=== PATIENT | male | born 1950 | race Caucasian/White ===

== ENCOUNTER 2023-07-27 09:10 | Inpatient (IN) | payer OTHER ==
[2023-07-27 11:13] LABS: BASO % 0.8 % (0-2.0); EOS % 0.6 % (0-4.5); HEMATOCRIT 20.2 % (35.4-49); LYMPH % 10.9 % (8-40); MCH 29.9 pg (25.7-33.7); MCHC 32.5 g/dl (32.0-35.9); MEAN CELL VOLUME 92.1 fl (80-96); MEAN PLT VOLUME 8.5 fl (7.5-11.1); MONO % 4.9 % (3.8-10.2); NEUT % 82.8 % (42.8-82.8); PLATELET COUNT 189 10^3/uL (134-434); RBC 2.19 M/mm3 (4.00-5.60); RDW 20.4 % (11.9-15.9)
[2023-07-27 11:13] LABS: INR 1.12 (0.83-1.09)
[2023-07-27 11:15] LABS: ACTIVATED PTT 26.4 SECONDS (25.2-36.5)
[2023-07-27 11:19] LABS: HEMOGLOBIN 6.6 GM/dL (11.7-16.9)
[2023-07-27 11:22] LABS: POTASSIUM 4.1 mmol/L (3.5-5.1)
[2023-07-27 11:23] LABS: ALBUMIN 3.2 g/dl (3.4-5.0); BLOOD UREA NITROGEN 55.1 mg/dL (7-18); CALCIUM 9.3 mg/dL (8.5-10.1)
[2023-07-27 11:25] LABS: CREATININE 1.6 mg/dL (0.55-1.3)
[2023-07-27 11:28] LABS: BILIRUBIN,TOTAL 0.3 mg/dL (0.2-1); TOT PROT 6.4 g/dl (6.4-8.2)
[2023-07-27] MEDS ORDERED: LACTATED RINGERS SOLUTION 1,000 ML/1,000 ML INFUS.BAG IV SCH (14:00)
[2023-07-27] MEDS ORDERED: PANTOPRAZOLE SODIUM 40 MG/100 ML BAG IVPB ONE (14:34)
[2023-07-27] MEDS: PANTOPRAZOLE SODIUM 40 MG VIAL IVPUSH SCH (15:06)
[2023-07-27] MEDS: INSULIN SLIDING SCALE (NOVOLOG) 1 VIAL SQ SCH ×2 (17:23→22:58)
[2023-07-27] MEDS ORDERED: CARVEDILOL 3.125 MG TABLET (FP) PO SCH (22:00)
[2023-07-27] MEDS ORDERED: SACUBITRIL/VALSARTAN 24 MG-26 MG TABLET PO SCH (22:00)
[2023-07-27] MEDS ORDERED: ATORVASTATIN CA 40 MG TABLET (FP) ONE (22:34)
[2023-07-27 22:49] LABS: HEMATOCRIT 21.8 % (35.4-49); HEMOGLOBIN 7.1 GM/dL (11.7-16.9); MCH 29.7 pg (25.7-33.7); MCHC 32.5 g/dl (32.0-35.9); MEAN CELL VOLUME 91.5 fl (80-96); MEAN PLT VOLUME 7.7 fl (7.5-11.1); PLATELET COUNT 146 10^3/uL (134-434); RBC 2.39 M/mm3 (4.00-5.60); RDW 17.9 % (11.9-15.9); WHITE BLOOD COUNT 7.2 K/mm3 (4.0-10.0)
[2023-07-27] MEDS: MEMANTINE HCL 5 MG TABLET (UD) PO SCH (22:54)
[2023-07-27] MEDS: ATORVASTATIN CA 40 MG TABLET (FP) PO SCH (22:54)
[2023-07-28 06:42] LABS: HEMATOCRIT 27.4 % (35.4-49); HEMOGLOBIN 9.1 GM/dL (11.7-16.9); MCH 30.6 pg (25.7-33.7); MCHC 33.4 g/dl (32.0-35.9); MEAN CELL VOLUME 91.4 fl (80-96); MEAN PLT VOLUME 8.1 fl (7.5-11.1); PLATELET COUNT 148 10^3/uL (134-434); RBC 2.99 M/mm3 (4.00-5.60); RDW 16.2 % (11.9-15.9); WHITE BLOOD COUNT 8.4 K/mm3 (4.0-10.0)
[2023-07-28] MEDS: DONEPEZIL HCL 10 MG TABLET (FP) PO SCH (09:07)
[2023-07-28] MEDS: metoPROLOL SUCCINATE 25 MG TAB.SR.24H (FP) PO SCH (09:08)
[2023-07-28] MEDS: OXYBUTYNIN CHLORIDE 5 MG TABLET PO SCH ×2 (09:08→21:55)
[2023-07-28] MEDS: PANTOPRAZOLE SODIUM 40 MG VIAL IVPUSH SCH (09:08)
[2023-07-28] MEDS: TAMSULOSIN HCL 0.4 MG CAP PO SCH (09:08)
[2023-07-28] MEDS: MEMANTINE HCL 5 MG TABLET (UD) PO SCH ×2 (09:08→21:33)
[2023-07-28] MEDS: FINASTERIDE 5 MG TABLET (FP) PO SCH (09:08)
[2023-07-28] MEDS: ALLOPURINOL 300 MG TABLET (FP) PO SCH (09:08)
[2023-07-28] MEDS: INSULIN SLIDING SCALE (NOVOLOG) 1 VIAL SQ SCH ×4 (09:31→21:33)
[2023-07-28] MEDS ORDERED: TORSEMIDE 20 MG TABLET (FP) PO SCH (10:00)
[2023-07-28] MEDS ORDERED: MEMANTINE HCL 7 MG PO SCH (10:00)
[2023-07-28 10:03] LABS: BASO % 0.4 % (0-2.0); EOS % 0.8 % (0-4.5); HEMATOCRIT 25.6 % (35.4-49); HEMOGLOBIN 8.5 GM/dL (11.7-16.9); LYMPH % 9.2 % (8-40); MCH 30.2 pg (25.7-33.7); MCHC 33.3 g/dl (32.0-35.9); MEAN CELL VOLUME 90.9 fl (80-96); MONO % 6.2 % (3.8-10.2); NEUT % 83.4 % (42.8-82.8); PLATELET COUNT 146 10^3/uL (134-434); RBC 2.82 M/mm3 (4.00-5.60); RDW 17.4 % (11.9-15.9); WHITE BLOOD COUNT 8.6 K/mm3 (4.0-10.0)
[2023-07-28 10:45] LABS: POTASSIUM 4.2 mmol/L (3.5-5.1)
[2023-07-28 10:49] LABS: CALCIUM 8.5 mg/dL (8.5-10.1)
[2023-07-28 10:52] LABS: BILIRUBIN,TOTAL 0.8 mg/dL (0.2-1); BLOOD UREA NITROGEN 38.7 mg/dL (7-18); CREATININE 1.1 mg/dL (0.55-1.3); PHOSPHOROUS 2.8 mg/dL (2.5-4.9); TOT PROT 5.8 g/dl (6.4-8.2)
[2023-07-28] MEDS ORDERED: INSULIN (NOVOLOG) ASPART 100 UNITS/ML 10ML VIAL ONE (21:23)
[2023-07-28] MEDS: ATORVASTATIN CA 40 MG TABLET (FP) PO SCH (21:33)
[2023-07-29] MEDS: INSULIN SLIDING SCALE (NOVOLOG) 1 VIAL SQ SCH ×4 (06:06→21:49)
[2023-07-29 08:42] LABS: BASO % 0.8 % (0-2.0); HEMATOCRIT 24.1 % (35.4-49); LYMPH % 16.9 % (8-40); MCH 30.6 pg (25.7-33.7); MCHC 33.4 g/dl (32.0-35.9); MEAN CELL VOLUME 91.6 fl (80-96); MEAN PLT VOLUME 8.2 fl (7.5-11.1); MONO % 7.8 % (3.8-10.2); NEUT % 70.5 % (42.8-82.8); PLATELET COUNT 135 10^3/uL (134-434); RBC 2.63 M/mm3 (4.00-5.60); RDW 17.7 % (11.9-15.9); WHITE BLOOD COUNT 7.2 K/mm3 (4.0-10.0)
[2023-07-29 08:58] LABS: CALCIUM 8.9 mg/dL (8.5-10.1)
[2023-07-29 08:59] LABS: ALBUMIN 3.1 g/dl (3.4-5.0)
[2023-07-29 09:02] LABS: BILIRUBIN,TOTAL 0.5 mg/dL (0.2-1); CREATININE 1.1 mg/dL (0.55-1.3)
[2023-07-29 09:03] LABS: TOT PROT 5.8 g/dl (6.4-8.2)
[2023-07-29] MEDS: metoPROLOL SUCCINATE 25 MG TAB.SR.24H (FP) PO SCH (09:34)
[2023-07-29] MEDS: FINASTERIDE 5 MG TABLET (FP) PO SCH (09:34)
[2023-07-29] MEDS: ALLOPURINOL 300 MG TABLET (FP) PO SCH (09:34)
[2023-07-29] MEDS: OXYBUTYNIN CHLORIDE 5 MG TABLET PO SCH ×2 (09:34→21:46)
[2023-07-29] MEDS: MEMANTINE HCL 5 MG TABLET (UD) PO SCH ×2 (09:34→21:46)
[2023-07-29] MEDS: DONEPEZIL HCL 10 MG TABLET (FP) PO SCH (09:34)
[2023-07-29] MEDS: PANTOPRAZOLE SODIUM 40 MG VIAL IVPUSH SCH (09:34)
[2023-07-29] MEDS: TAMSULOSIN HCL 0.4 MG CAP PO SCH (09:34)
[2023-07-29 15:58] VITALS: BMI 27.3
[2023-07-29] MEDS: ATORVASTATIN CA 40 MG TABLET (FP) PO SCH (21:46)
[2023-07-30] MEDS: INSULIN SLIDING SCALE (NOVOLOG) 1 VIAL SQ SCH ×4 (06:08→21:35)
[2023-07-30 07:45] LABS: BASO % 0.8 % (0-2.0); EOS % 4.2 % (0-4.5); HEMATOCRIT 24.6 % (35.4-49); HEMOGLOBIN 8.3 GM/dL (11.7-16.9); LYMPH % 16.6 % (8-40); MCH 31.1 pg (25.7-33.7); MCHC 33.6 g/dl (32.0-35.9); MEAN CELL VOLUME 92.6 fl (80-96); MONO % 6.9 % (3.8-10.2); NEUT % 71.5 % (42.8-82.8); PLATELET COUNT 130 10^3/uL (134-434); RBC 2.66 M/mm3 (4.00-5.60); RDW 18.2 % (11.9-15.9); WHITE BLOOD COUNT 7.8 K/mm3 (4.0-10.0)
[2023-07-30 09:03] LABS: POTASSIUM 4.5 mmol/L (3.5-5.1)
[2023-07-30 09:12] LABS: BILIRUBIN,TOTAL 0.3 mg/dL (0.2-1)
[2023-07-30 09:13] LABS: ALBUMIN 2.8 g/dl (3.4-5.0); BLOOD UREA NITROGEN 23.4 mg/dL (7-18); TOT PROT 5.6 g/dl (6.4-8.2)
[2023-07-30 09:15] LABS: CREATININE 1.1 mg/dL (0.55-1.3)
[2023-07-30] MEDS: metoPROLOL SUCCINATE 25 MG TAB.SR.24H (FP) PO SCH (10:14)
[2023-07-30] MEDS: FINASTERIDE 5 MG TABLET (FP) PO SCH (10:14)
[2023-07-30] MEDS: MEMANTINE HCL 5 MG TABLET (UD) PO SCH ×2 (10:14→21:32)
[2023-07-30] MEDS: ALLOPURINOL 300 MG TABLET (FP) PO SCH (10:14)
[2023-07-30] MEDS: DONEPEZIL HCL 10 MG TABLET (FP) PO SCH (10:14)
[2023-07-30] MEDS: OXYBUTYNIN CHLORIDE 5 MG TABLET PO SCH ×2 (10:14→21:32)
[2023-07-30] MEDS: TAMSULOSIN HCL 0.4 MG CAP PO SCH (10:14)
[2023-07-30] MEDS: PANTOPRAZOLE SODIUM 40 MG VIAL IVPUSH SCH (10:47)
[2023-07-30] MEDS: ATORVASTATIN CA 40 MG TABLET (FP) PO SCH (21:32)
[2023-07-31] MEDS: INSULIN SLIDING SCALE (NOVOLOG) 1 VIAL SQ SCH ×4 (06:32→21:10)
[2023-07-31 08:38] LABS: BASO % 0.8 % (0-2.0); EOS % 4.2 % (0-4.5); HEMATOCRIT 25.5 % (35.4-49); HEMOGLOBIN 8.2 GM/dL (11.7-16.9); LYMPH % 17.7 % (8-40); MCHC 32.3 g/dl (32.0-35.9); MEAN CELL VOLUME 92.8 fl (80-96); MEAN PLT VOLUME 7.6 fl (7.5-11.1); MONO % 9.2 % (3.8-10.2); NEUT % 68.1 % (42.8-82.8); PLATELET COUNT 134 10^3/uL (134-434); RBC 2.75 M/mm3 (4.00-5.60); RDW 18.5 % (11.9-15.9); WHITE BLOOD COUNT 6.6 K/mm3 (4.0-10.0)
[2023-07-31 09:02] LABS: POTASSIUM 4.9 mmol/L (3.5-5.1)
[2023-07-31] MEDS: OXYBUTYNIN CHLORIDE 5 MG TABLET PO SCH ×2 (09:15→21:06)
[2023-07-31] MEDS: DONEPEZIL HCL 10 MG TABLET (FP) PO SCH (09:15)
[2023-07-31] MEDS: metoPROLOL SUCCINATE 25 MG TAB.SR.24H (FP) PO SCH (09:15)
[2023-07-31] MEDS: MEMANTINE HCL 5 MG TABLET (UD) PO SCH ×2 (09:15→21:06)
[2023-07-31] MEDS: PANTOPRAZOLE SODIUM 40 MG VIAL IVPUSH SCH (09:15)
[2023-07-31] MEDS: TAMSULOSIN HCL 0.4 MG CAP PO SCH (09:15)
[2023-07-31] MEDS: FINASTERIDE 5 MG TABLET (FP) PO SCH (09:15)
[2023-07-31] MEDS: ALLOPURINOL 300 MG TABLET (FP) PO SCH (09:15)
[2023-07-31 09:24] LABS: ALBUMIN 2.9 g/dl (3.4-5.0); CALCIUM 8.4 mg/dL (8.5-10.1); MAGNESIUM 2.3 mg/dL (1.8-2.4)
[2023-07-31 09:25] LABS: BLOOD UREA NITROGEN 18.5 mg/dL (7-18)
[2023-07-31 09:27] LABS: CREATININE 0.9 mg/dL (0.55-1.3); PHOSPHOROUS 2.9 mg/dL (2.5-4.9)
[2023-07-31 09:28] LABS: BILIRUBIN,TOTAL 0.4 mg/dL (0.2-1); TOT PROT 5.6 g/dl (6.4-8.2)
[2023-07-31] MEDS ORDERED: PEG 3350/NA SULF BICARB CL/KCL 4000 ML SOLN.RECON PO ONE (10:00)
[2023-07-31] MEDS ORDERED: BISACODYL 5 MG TABLET.DR (FP) PO ONE (20:00)
[2023-07-31] MEDS: ATORVASTATIN CA 40 MG TABLET (FP) PO SCH (21:06)
[2023-08-01] MEDS: INSULIN SLIDING SCALE (NOVOLOG) 1 VIAL SQ SCH ×4 (06:06→22:20)
[2023-08-01 07:37] LABS: INR 0.9 (0.83-1.09); PROTHROMBIN TIME (PATIENT) 10.5 SEC (9.7-13.0)
[2023-08-01 07:41] LABS: POTASSIUM 3.8 mmol/L (3.5-5.1)
[2023-08-01 07:52] LABS: BLOOD UREA NITROGEN 8.8 mg/dL (7-18)
[2023-08-01 07:55] LABS: CREATININE 0.9 mg/dL (0.55-1.3)
[2023-08-01 08:02] LABS: BASO % 1.1 % (0-2.0); EOS % 2.8 % (0-4.5); HEMATOCRIT 27.8 % (35.4-49); HEMOGLOBIN 8.9 GM/dL (11.7-16.9); LYMPH % 14.6 % (8-40); MCH 29.4 pg (25.7-33.7); MCHC 31.9 g/dl (32.0-35.9); MEAN CELL VOLUME 92.2 fl (80-96); MEAN PLT VOLUME 8.1 fl (7.5-11.1); MONO % 6.4 % (3.8-10.2); NEUT % 75.1 % (42.8-82.8); PLATELET COUNT 160 10^3/uL (134-434); RBC 3.02 M/mm3 (4.00-5.60); RDW 18.1 % (11.9-15.9); WHITE BLOOD COUNT 7.4 K/mm3 (4.0-10.0)
[2023-08-01] MEDS: MEMANTINE HCL 5 MG TABLET (UD) PO SCH ×2 (09:25→22:15)
[2023-08-01] MEDS: ALLOPURINOL 300 MG TABLET (FP) PO SCH (09:25)
[2023-08-01] MEDS: DONEPEZIL HCL 10 MG TABLET (FP) PO SCH (09:25)
[2023-08-01] MEDS: PANTOPRAZOLE SODIUM 40 MG VIAL IVPUSH SCH (09:26)
[2023-08-01] MEDS: FINASTERIDE 5 MG TABLET (FP) PO SCH (09:26)
[2023-08-01] MEDS: metoPROLOL SUCCINATE 25 MG TAB.SR.24H (FP) PO SCH (09:27)
[2023-08-01] MEDS: OXYBUTYNIN CHLORIDE 5 MG TABLET PO SCH ×2 (09:37→22:15)
[2023-08-01 15:00] VITALS: RESP 20
[2023-08-01] MEDS ORDERED: IRON SUCROSE INJECTION 200 MG in SODIUM CHLORIDE 90 ML IVPB ONE (15:00)
[2023-08-01] MEDS: TAMSULOSIN HCL 0.4 MG CAP PO SCH (15:29)
[2023-08-01] MEDS ORDERED: PANTOPRAZOLE 40 MG TABLET PO SCH (22:00)
[2023-08-01] MEDS: ATORVASTATIN CA 40 MG TABLET (FP) PO SCH (22:15)
[2023-08-02] MEDS: INSULIN SLIDING SCALE (NOVOLOG) 1 VIAL SQ SCH (06:09)
[2023-08-02 06:26] VITALS: BP 150/75; PULSE 75; TEMP 98
== END 2023-08-02 09:24 | disposition home or self-care (01) | DRG 378 ==
LOC: JER 09:10 → JERBED 13:18 → J4W 07-28 15:24
PROVIDERS: ADMIT Internal Medicine; ATTEND Internal Medicine
PROC: 0DB78ZX Excision of Stomach, Pylorus, Via Natural or Artificial Opening Endoscopic, Diagnostic (ICD-10-PCS; 2023-08-01)
PROC: 0DBH8ZZ Excision of Cecum, Via Natural or Artificial Opening Endoscopic (ICD-10-PCS; 2023-08-01)
PROC: 0DBL8ZZ Excision of Transverse Colon, Via Natural or Artificial Opening Endoscopic (ICD-10-PCS; 2023-08-01)
PROC: 0W3P8ZZ Control Bleeding in Gastrointestinal Tract, Via Natural or Artificial Opening Endoscopic (ICD-10-PCS; 2023-08-01)
PROC: 30233N1 Transfusion of Nonautologous Red Blood Cells into Peripheral Vein, Percutaneous Approach (ICD-10-PCS; 2023-08-01)
PROC: 0DB98ZX Excision of Duodenum, Via Natural or Artificial Opening Endoscopic, Diagnostic (ICD-10-PCS; principal; 2023-08-01 11:45)
DX: K25.0 Acute gastric ulcer with hemorrhage (principal); D62 Acute posthemorrhagic anemia; N17.9 Acute kidney failure, unspecified; I50.32 Chronic diastolic (congestive) heart failure; I13.0 Hypertensive heart and chronic kidney disease with heart failure and stage 1 through stage 4 chronic kidney disease, or unspecified chronic kidney disease; K25.9 Gastric ulcer, unspecified as acute or chronic, without hemorrhage or perforation; K21.9 Gastro-esophageal reflux disease without esophagitis; E78.5 Hyperlipidemia, unspecified; G30.9 Alzheimer's disease, unspecified; F02.80 Dementia in other diseases classified elsewhere, unspecified severity, without behavioral disturbance, psychotic disturbance, mood disturbance, and anxiety; N40.0 Benign prostatic hyperplasia without lower urinary tract symptoms; K59.00 Constipation, unspecified; M10.9 Gout, unspecified; E11.22 Type 2 diabetes mellitus with diabetic chronic kidney disease; N18.9 Chronic kidney disease, unspecified; Z95.0 Presence of cardiac pacemaker; D12.0 Benign neoplasm of cecum
CPT/HCPCS: 36415; 36430; 80048; 80053; 82272; 82728; 82962; 83540; 83550; 83735; 84100; 84484; 85025; 85027; 85610; 85730; 86850; 86900; 86901; 86922; 93005; 93010; 93306-TC; 99285-25; J1756; P9038; P9058

== ENCOUNTER 2023-10-12 16:28 | Observation (INO) | payer OTHER ==
[2023-10-12 17:29] VITALS: BMI 25.7
[2023-10-12 19:36] LABS: BASO % 0.9 % (0-2.0); EOS % 1.8 % (0-4.5); HEMATOCRIT 40.8 % (35.4-49); HEMOGLOBIN 12.8 GM/dL (11.7-16.9); LYMPH % 17.8 % (8-40); MCH 26.2 pg (25.7-33.7); MCHC 31.2 g/dl (32.0-35.9); MEAN CELL VOLUME 83.8 fl (80-96); MEAN PLT VOLUME 7.4 fl (7.5-11.1); MONO % 7.1 % (3.8-10.2); NEUT % 72.4 % (42.8-82.8); PLATELET COUNT 180 10^3/uL (134-434); RBC 4.88 M/mm3 (4.00-5.60); RDW 17.1 % (11.9-15.9); WHITE BLOOD COUNT 7.1 K/mm3 (4.0-10.0)
[2023-10-12 19:52] LABS: POTASSIUM 4.5 mmol/L (3.5-5.1)
[2023-10-12 19:54] LABS: ALBUMIN 3.5 g/dl (3.4-5.0); CALCIUM 9.1 mg/dL (8.5-10.1)
[2023-10-12 19:55] LABS: BLOOD UREA NITROGEN 32.2 mg/dL (7-18)
[2023-10-12 19:59] LABS: BILIRUBIN,TOTAL 0.4 mg/dL (0.2-1); CREATININE 1.5 mg/dL (0.55-1.3); PHOSPHOROUS 3.2 mg/dL (2.5-4.9); TOT PROT 7.2 g/dl (6.4-8.2)
[2023-10-12] MEDS: SODIUM CHLORIDE 0.9% 500 ML INFUS.BAG IV ONE (20:07)
[2023-10-12] MEDS: DEXTROSE 5%-0.45% SALINE 1,000 ML IV SCH (22:01)
[2023-10-12 23:01] LABS: PH,URINE 7.5 (5.0-8.0); URINE APPEARANCE CLEAR; URINE BILIRUBIN NEGATIVE (NEGATIVE); URINE COLOR YELLOW; URINE GLUCOSE (UA) 2+ (NEGATIVE); URINE KETONE NEGATIVE (NEGATIVE); URINE LEUK ESTERASE NEGATIVE (NEGATIVE); URINE NITRITE NEGATIVE (NEGATIVE); URINE PROTEIN NEGATIVE (NEGATIVE); URINE UROBILINOGEN 0.2 mg/dL (0.2-1.0)
[2023-10-13] MEDS: INSULIN ASPART SLIDING SCALE (NOVOLOG) 1 VIAL SQ SCH (07:00)
[2023-10-13] MEDS: LACTATED RINGERS SOLUTION 1,000 ML/1,000 ML INFUS.BAG IV SCH (07:39)
[2023-10-13 08:07] LABS: BASO % 0.7 % (0-2.0); EOS % 2.3 % (0-4.5); HEMATOCRIT 36.5 % (35.4-49); HEMOGLOBIN 11.9 GM/dL (11.7-16.9); LYMPH % 17.1 % (8-40); MCH 27.1 pg (25.7-33.7); MCHC 32.6 g/dl (32.0-35.9); MEAN CELL VOLUME 83.3 fl (80-96); MEAN PLT VOLUME 7.7 fl (7.5-11.1); MONO % 6.9 % (3.8-10.2); PLATELET COUNT 164 10^3/uL (134-434); RBC 4.38 M/mm3 (4.00-5.60); RDW 17.1 % (11.9-15.9); WHITE BLOOD COUNT 7.5 K/mm3 (4.0-10.0)
[2023-10-13 08:25] LABS: POTASSIUM 3.8 mmol/L (3.5-5.1)
[2023-10-13 08:30] LABS: CALCIUM 8.8 mg/dL (8.5-10.1)
[2023-10-13 08:31] LABS: ALBUMIN 3.3 g/dl (3.4-5.0); BLOOD UREA NITROGEN 31.1 mg/dL (7-18); MAGNESIUM 2.6 mg/dL (1.8-2.4)
[2023-10-13 08:35] LABS: BILIRUBIN,TOTAL 0.5 mg/dL (0.2-1); CREATININE 1.4 mg/dL (0.55-1.3); PHOSPHOROUS 2.9 mg/dL (2.5-4.9); TOT PROT 6.9 g/dl (6.4-8.2)
[2023-10-13] MEDS ORDERED: ENOXAPARIN NA (PORCINE) 40 MG/0.4 ML DISP.SYRIN SQ SCH (10:00)
[2023-10-13] MEDS: MEMANTINE HCL 5 MG TABLET (UD) PO SCH (10:15)
[2023-10-13] MEDS: FINASTERIDE 5 MG TABLET (FP) PO SCH (10:15)
[2023-10-13] MEDS: TAMSULOSIN HCL 0.4 MG CAP PO SCH (10:15)
[2023-10-13] MEDS: SOLIFENACIN SUCCINATE 5 MG TAB PO SCH (10:15)
[2023-10-13] MEDS: PANTOPRAZOLE 40 MG TABLET PO SCH (10:15)
[2023-10-13] MEDS: APIXABAN 5 MG TABLET PO SCH (10:15)
[2023-10-13] MEDS: ATORVASTATIN CA 40 MG TABLET (FP) PO SCH (21:23)
[2023-10-13] MEDS: DONEPEZIL HCL 10 MG TABLET (FP) PO SCH (21:23)
[2023-10-14 08:47] LABS: HEMATOCRIT 35.5 % (35.4-49); HEMOGLOBIN 11.9 GM/dL (11.7-16.9); MCH 27.7 pg (25.7-33.7); MCHC 33.5 g/dl (32.0-35.9); MEAN CELL VOLUME 82.5 fl (80-96); MEAN PLT VOLUME 7.8 fl (7.5-11.1); PLATELET COUNT 159 10^3/uL (134-434); RBC 4.31 M/mm3 (4.00-5.60); RDW 17.4 % (11.9-15.9); WHITE BLOOD COUNT 6.3 K/mm3 (4.0-10.0)
[2023-10-14 08:59] LABS: POTASSIUM 3.7 mmol/L (3.5-5.1)
[2023-10-14 09:09] LABS: ALBUMIN 3.2 g/dl (3.4-5.0); CALCIUM 9.1 mg/dL (8.5-10.1)
[2023-10-14 09:10] LABS: BLOOD UREA NITROGEN 30.7 mg/dL (7-18)
[2023-10-14 09:12] LABS: CREATININE 1.2 mg/dL (0.55-1.3)
[2023-10-14] MEDS: metoPROLOL SUCCINATE 25 MG TAB.SR.24H (FP) PO SCH (09:12)
[2023-10-14 09:14] LABS: BILIRUBIN,TOTAL 0.4 mg/dL (0.2-1); TOT PROT 6.6 g/dl (6.4-8.2)
[2023-10-14 10:26] VITALS: PULSE 60; RESP 18; TEMP 97.7
[2023-10-14 11:07] VITALS: BP 152/68
== END 2023-10-14 14:58 | disposition home health service (06) ==
LOC: JER 16:28 → JERBED 21:33 → J7W 10-13 02:57
PROVIDERS: ADMIT Internal Medicine; ATTEND Internal Medicine
PROC: 3E033GC Introduction of Other Therapeutic Substance into Peripheral Vein, Percutaneous Approach (ICD-10-PCS; principal; 2023-10-12)
PROC: 3E013VG Introduction of Insulin into Subcutaneous Tissue, Percutaneous Approach (ICD-10-PCS; 2023-10-12)
PROC: 3E0337Z Introduction of Electrolytic and Water Balance Substance into Peripheral Vein, Percutaneous Approach (ICD-10-PCS; 2023-10-12)
PROC: 3E0337Z Introduction of Electrolytic and Water Balance Substance into Peripheral Vein, Percutaneous Approach (ICD-10-PCS; 2023-10-12)
PROC: 3E013VG Introduction of Insulin into Subcutaneous Tissue, Percutaneous Approach (ICD-10-PCS; 2023-10-12)
DX: N17.9 Acute kidney failure, unspecified (principal); R11.10 Vomiting, unspecified; E86.0 Dehydration; K21.9 Gastro-esophageal reflux disease without esophagitis; E11.22 Type 2 diabetes mellitus with diabetic chronic kidney disease; F03.90 Unspecified dementia, unspecified severity, without behavioral disturbance, psychotic disturbance, mood disturbance, and anxiety; K27.9 Peptic ulcer, site unspecified, unspecified as acute or chronic, without hemorrhage or perforation; I13.0 Hypertensive heart and chronic kidney disease with heart failure and stage 1 through stage 4 chronic kidney disease, or unspecified chronic kidney disease; N18.2 Chronic kidney disease, stage 2 (mild); D64.9 Anemia, unspecified; E78.5 Hyperlipidemia, unspecified; I48.91 Unspecified atrial fibrillation; Z79.01 Long term (current) use of anticoagulants; R00.1 Bradycardia, unspecified; Z95.0 Presence of cardiac pacemaker; Z95.1 Presence of aortocoronary bypass graft; Z91.041 Radiographic dye allergy status
CPT/HCPCS: 0241U-QW; 36415; 71045-TC-FY; 80053; 81003; 82962; 83036; 83690; 83735; 84100; 84443; 84484; 85025; 85027; 87077; 87086; 93005; 93010; 96361; 96365; 96372; 96375; 97116-GP; 97162-GP; 99285-25; G0378